=== PATIENT | male | born 1960 ===

== ENCOUNTER 2018-11-23 05:00 | Day surgery (SDC) | payer OTHER ==
[~2018-11-23 05:00] MED LIST: COZAAR100 MG PO; JANUMET 50-5001 EACH PO
[2018-11-23] MEDS ORDERED: TRAM1TAB98 PO (08:49)
[2018-11-23] MEDS ORDERED: DUI500 PO (08:49)
== END 2018-11-23 11:40 | disposition home or self-care (01) ==
LOC: CIR.AMB 05:00
DX: M23.321 Other meniscus derangements, posterior horn of medial meniscus, right knee (principal); M65.861 Other synovitis and tenosynovitis, right lower leg